=== PATIENT | female | born 1940 | race Caucasian/White ===

== ENCOUNTER 2022-10-21 21:46 | Inpatient (IN) | payer OTHER ==
[2022-10-21 21:59] VITALS: BMI 37.0
[2022-10-21 22:59] LABS: BASO % 0.9 % (0-2.0); EOS % 0.7 % (0-4.5); HEMATOCRIT 35.5 % (32.4-45.2); LYMPH % 52.3 % (8-40); MCH 32.5 pg (25.7-33.7); MCHC 33.9 g/dl (32.0-36.0); MEAN CELL VOLUME 95.9 fl (80-96); MEAN PLT VOLUME 7.3 fl (7.5-11.1); NEUT % 34.1 % (42.8-82.8); PLATELET COUNT 242 10^3/uL (134-434); RDW 13.8 % (11.6-15.6); WHITE BLOOD COUNT 4.4 K/mm3 (4.0-10.0)
[2022-10-21 23:04] LABS: INR 1.09 (0.83-1.09); PROTHROMBIN TIME (PATIENT) 12.6 SEC (9.7-13.0)
[2022-10-21 23:07] LABS: ACTIVATED PTT 26.6 SECONDS (25.2-36.5)
[2022-10-21] MEDS ORDERED: ATROPINE SULFATE 1 MG/10 ML DISP.SYRIN IVPUSH ONE (23:09)
[2022-10-21] MEDS ORDERED: LACTATED RINGERS SOLUTION 1,000 ML/1,000 ML INFUS.BAG IV SCH (23:15)
[2022-10-21 23:20] LABS: BLOOD UREA NITROGEN 37.6 mg/dL (7-18)
[2022-10-21 23:21] LABS: ALBUMIN 3.8 g/dl (3.4-5.0); MAGNESIUM 2.1 mg/dL (1.8-2.4)
[2022-10-21 23:25] LABS: BILIRUBIN,TOTAL 0.5 mg/dL (0.2-1); TOT PROT 7.8 g/dl (6.4-8.2)
[2022-10-21] MEDS ORDERED: GLUCAGON 1 MG KIT ONE (23:25)
[2022-10-21] MEDS ORDERED: ATROPINE SULFATE 1 MG/10 ML DISP.SYRIN ONE (23:26)
[2022-10-21] MEDS ORDERED: GLUCAGON 1 MG KIT IVPUSH ONE (23:26)
[2022-10-21 23:29] LABS: N-TERMINAL BNP 212.4 pg/ml (5-450)
[2022-10-21] MEDS ORDERED: ONDANSETRON 4 MG/2 ML VIAL IVPUSH ONE (23:33)
[2022-10-22] MEDS ORDERED: GLUCAGON 1 MG KIT IVPUSH ONE (01:38)
[2022-10-22] MEDS ORDERED: ATROPINE SULFATE 1 MG/10 ML DISP.SYRIN IVPUSH PRN (01:49)
[2022-10-22] MEDS ORDERED: hydrALAZINE HCL 20 MG/ML VIAL IVPUSH PRN ×2 (01:53→01:54)
[2022-10-22] MEDS ORDERED: LACTATED RINGERS SOLUTION 1,000 ML/1,000 ML INFUS.BAG IV SCH (02:00)
[2022-10-22] MEDS ORDERED: ACETAMINOPHEN 1000 MG/100 ML BAG IVPB ONE (02:19)
[2022-10-22] MEDS ORDERED: GLUCAGON 1 MG KIT ONE (02:33)
[2022-10-22] MEDS ORDERED: ACETAMINOPHEN INJECTION 100 ML IVPB ONE (02:34)
[2022-10-22] MEDS ORDERED: ONDANSETRON 4 MG/2 ML VIAL IVPUSH PRN (04:07)
[2022-10-22] MEDS ORDERED: ACETAMINOPHEN 325 MG TABLET (FP) PO PRN (04:08)
[2022-10-22] MEDS ORDERED: ATROPINE SULFATE 1 MG/10 ML DISP.SYRIN ONE (04:32)
[2022-10-22] MEDS ORDERED: ONDANSETRON 4 MG/2 ML VIAL IVPB ONE (06:07)
[2022-10-22] MEDS ORDERED: ONDANSETRON 4 MG/2 ML VIAL ONE (06:25)
[2022-10-22] MEDS: INSULIN SLIDING SCALE (NOVOLOG) 1 VIAL SQ SCH ×3 (06:32→17:37)
[2022-10-22 08:49] LABS: HEMATOCRIT 33.9 % (32.4-45.2); HEMOGLOBIN 11.5 GM/dL (10.7-15.3); MCH 32.5 pg (25.7-33.7); MEAN CELL VOLUME 95.5 fl (80-96); MEAN PLT VOLUME 7.3 fl (7.5-11.1); PLATELET COUNT 243 10^3/uL (134-434); RBC 3.55 M/mm3 (3.60-5.2); WHITE BLOOD COUNT 7.2 K/mm3 (4.0-10.0)
[2022-10-22 09:08] LABS: CALCIUM 9.3 mg/dL (8.5-10.1)
[2022-10-22 09:09] LABS: MAGNESIUM 1.9 mg/dL (1.8-2.4)
[2022-10-22 09:11] LABS: ALBUMIN 3.5 g/dl (3.4-5.0); BLOOD UREA NITROGEN 28.6 mg/dL (7-18)
[2022-10-22 09:12] LABS: CREATININE 0.7 mg/dL (0.55-1.3)
[2022-10-22 09:14] LABS: PHOSPHOROUS 2.7 mg/dL (2.5-4.9)
[2022-10-22 09:15] LABS: BILIRUBIN,TOTAL 0.6 mg/dL (0.2-1)
[2022-10-22 09:29] VITALS: RESP 16
[2022-10-22] MEDS ORDERED: FUROSEMIDE 40 MG/4 ML INJECTABLE VIAL IVPUSH SCH (10:00)
[2022-10-22] MEDS ORDERED: UPADACITINIB 15 MG PO SCH (10:00)
[2022-10-22] MEDS ORDERED: amLODIPine BESYLATE 10 MG TABLET (FP) PO SCH (10:00)
[2022-10-22] MEDS ORDERED: PATIENT'S OWN MEDICATION (NON-FORMULARY) (Cyclosporine [Restasis] 1 EACH Droperette) OP SCH (10:00)
[2022-10-22] MEDS ORDERED: LOSARTAN POTASSIUM 50 MG TABLET PO SCH (10:00)
[2022-10-22] MEDS ORDERED: ENOXAPARIN NA (PORCINE) 40 MG/0.4 ML DISP.SYRIN SQ SCH (10:00)
[2022-10-22 21:50] VITALS: BP 154/59; PULSE 60; TEMP 98.7
== END 2022-10-22 21:35 | disposition short-term general hospital (02) | DRG 310 ==
LOC: JER 21:46 → JERBED 10-22 00:57 → J4S 10-22 07:30
PROVIDERS: ADMIT Internal Medicine; ATTEND Nurse Practitioner Family
DX: I44.1 Atrioventricular block, second degree (principal); R00.1 Bradycardia, unspecified; E11.9 Type 2 diabetes mellitus without complications; I10 Essential (primary) hypertension; R42 Dizziness and giddiness; M06.9 Rheumatoid arthritis, unspecified; M81.0 Age-related osteoporosis without current pathological fracture; K21.9 Gastro-esophageal reflux disease without esophagitis; Z79.84 Long term (current) use of oral hypoglycemic drugs
CPT/HCPCS: 36415; 71045-TC-FY; 80053; 80061; 82962; 83036; 83735; 83880; 84100; 84443; 84484; 85025; 85027; 85610; 85730; 86850; 86900; 86901; 93005; 93010; 93306-TC; 99285-25; C9803-CS; U0003; U0005